=== PATIENT | male | born 1960 | race Hispanic/Latino ===

== ENCOUNTER → 2022-07-11 | Day surgery (SDC) | payer MEDICARE ==
[2022-05-28 08:54] LABS: HEMATOCRIT 46.1 % (38.2-49.6); HEMOGLOBIN 14.3 g/dL (14.0-18.0)
[2022-05-28 09:12] LABS: ANION GAP 14.3 mmol/L (8-16); CREATININE, SERUM 0.76 mg/dL (0.72-1.25); POTASSIUM 4.3 mmol/L (3.5-5.1)
[2022-07-09 14:24] LABS: HEMATOCRIT 46.5 % (38.2-49.6); HEMOGLOBIN 14.3 g/dL (14.0-18.0)
[2022-07-09 14:39] LABS: ANION GAP 12.2 mmol/L (8-16); CALCIUM 9.3 mg/dL (8.4-10.2); CREATININE, SERUM 0.72 mg/dL (0.72-1.25); POTASSIUM 4.2 mmol/L (3.5-5.1)
[~2022-07-11] MED LIST: ADVAIR 100-501 EACH INH; AMLODIPINE BESY10 MG PO; BALANCED SALT SOLN (OPTH) 15 ML BTL IO ONE; BUPIVACAINE HC 0.75% PF 10ML VIAL INJ ONE; CARVEDILOL3.125 MG PO; CRESTOR10 MG PO; EPINEPHRINE HCL 1:1000 1ML 1 MG/ML AMP ONE; FENTANYL CITRATE/PF 100MCG/2 ML INJ ONE; LIDOCAINE HCL-PF 4% 40 MG/1 ML 5ML AMP ONE; MICARDIS80 MG PO; POVIDONE IODINE 5% (OPTH) 30 ML BTL ONE; PROVENTIL HFA6.7 GM INH; TOBRAMYCIN/DEXAMETHASONE(OPTH) 3.5 GM TUBE ONE; ULTRAM 50MG50 MG PO
[2022-07-11 14:10] VITALS: BP 165/82
== END | disposition home or self-care (01) ==
LOC: OR 09:33
PROVIDERS: ATTEND Ophthalmology
DX: H11.031 Double pterygium of right eye (principal); I10 Essential (primary) hypertension; J45.909 Unspecified asthma, uncomplicated; G89.29 Other chronic pain; Z01.810 Encounter for preprocedural cardiovascular examination; Z01.812 Encounter for preprocedural laboratory examination; Z79.899 Other long term (current) drug therapy
CPT/HCPCS: 36415 ×3; 65426; 80048 ×2; 82948; 85014 ×2; 85018 ×2; 88304; 93005; J3010; V2790; J0171